=== PATIENT | female | born 1980 | race African-American/Black ===

== ENCOUNTER 2024-01-08 12:42 | Observation (INO) | payer SELFPAY ==
--- NOTE | ~2024-01-08 | MR_ITS ---
EXAMINATION: MR thoracic spine wo/w con DATE: 01/10/2024 11:48 INDICATION: Multiple sclerosis. Left-sided numbness. TECHNIQUE: Magnetic resonance imaging (MRI) of the thoracic spine was performed without and with 17 m L MultiHance intravenous contrast. COMPARISON: None FINDINGS: There is 7 degrees levocurvature of thoracic spine. There is mild chronic height loss at T3 , T4, and T5 vertebral bodies. Intervertebral disc heights are normal. The discs do not extend beyond the endplate margins. There is multilevel mild facet joint osteoarthritis. No neural foraminal steno sis or central canal stenosis. The spinal cord signal intensity is normal. IMPRESSION: 1. Normal thoracic spinal cord. Reviewed, dictated and finalized at location E.
--- NOTE | ~2024-01-08 | CT_ITS ---
EXAMINATION: CTA brain carotid DATE: 01/08/2024 16:16 INDICATION: Numbness on the left side of face, arms and legs. Lightheadedness. TECHNIQUE: Computed tomographic angiography (CTA) of the head was performed without and with 100 mL O mnipaque-350 intravenous contrast. CTA of the neck was performed with intravenous contrast. Automated exposure control and iterative reconstruction technique were employed. The dose-length product was 1 834.18 mGy-cm. Maximum intensity projection and volume rendered 3D-reconstructions were created by becky fowler technologist on a separate workstation. COMPARISON: None. FINDINGS: HEAD CTA: There is no intracranial hemorrhage, acute infarction, or abnormal intracranial mass lesion . The ventricles are normal in size. The orbits are normal. The paranasal sinuses are clear. The mast oid air cells are normal. The vertebral arteries are codominant. There is no significant stenosis of basilar artery or the posterior cerebral arteries. There is no significant stenosis of the intracrani al internal carotid arteries or anterior or middle cerebral arteries. Anterior communicating artery i s normal. The posterior communicating arteries are normal. There is no aneurysm. NECK CTA: There are nodules in the thyroid measuring up to 9 mm, likely not clinically significant. T here is no cervical lymphadenopathy. There is no significant stenosis of the vertebral arteries. Ther e is mild plaque in the proximal internal carotid arteries. There is 0% stenosis of the proximal righ t internal carotid artery relative to normal distal artery lumen diameter (NASCET criteria). There is 0% stenosis of the proximal left internal carotid artery relative to normal distal artery lumen diam eter. There is mild cervical spondylosis. IMPRESSION: 1. Normal brain. No aneurysm or significant intracranial arterial stenosis 2. 0% stenosis of the proximal internal carotid arteries relative to normal distal artery lumen diame ters (NASCET criteria). Reviewed, dictated and finalized at location A. IMPRESSION: 1. Normal brain. No aneurysm or significant intracranial arterial stenosis 2. 0% stenosis of the proximal internal carotid arteries relative to normal dis romero artery lumen diameters (NASCET criteria).
--- NOTE | ~2024-01-08 | XR_ITS ---
EXAMINATION: XR lumbar puncture diagnostic DATE: 01/09/2024 15:15 INDICATION: Multiple sclerosis. TECHNIQUE: The procedure including the risks, benefits, and alternatives was discussed with the patie nt. Risks discussed included spinal headache, cerebrospinal fluid leak, bleeding, and infection. The patient understood the risks and agreed to proceed. A timeout was performed to verify the patient' s name, date of , and procedure to be performed. The skin overlying the L3-L4 level was prepped and draped in usual sterile fashion. Subcutaneous 1% lidocaine was used for local anesthesia. A 20 gauge spinal needle was advanced under fluoroscopic guidance. The needle was removed and the entry s ite was cleaned and dressed. There were no immediate complications. Fluoroscopy exposure time was 0. 1 minutes. The total number of images was 1. FINDINGS: Real-time fluoroscopy demonstrates the needle at the L3-L4 level. The opening pressure was 17 cm water (Normal range is variably defined as 6-20 cm water and up to 25 cm water in obese patient s. Pressure >25 cm water is one of the modified Dandy criteria for idiopathic intracranial hypertensi on). 14 mL of clear, colorless fluid was collected in 4 tubes. IMPRESSION: 1. Successful fluoro-guided lumbar puncture. Reviewed, dictated and finalized at location A.
--- NOTE | ~2024-01-08 | MR_ITS ---
EXAMINATION: MR cervical spine wo/w con DATE: 01/10/2024 11:48 INDICATION: Multiple sclerosis. Left-sided numbness. TECHNIQUE: Magnetic resonance imaging (MRI) of the cervical spine was performed without and with 17 m L MultiHance intravenous contrast. COMPARISON: None FINDINGS: There is mild cervical kyphosis. Vertebral body heights are normal. There is mildly decreas ed disc height at C4-C5, C5-C6, and C6-C7. The spinal cord signal intensity is normal. The following disc levels are specifically discussed: C2-C3: The disc does not extend beyond the endplate margin. There is mild left uncovertebral joint os teoarthritis. There is mild bilateral facet joint osteoarthritis. There is no neural foraminal stenos is. There is no central canal stenosis. C3-C4: There is a central extrusion. There is mild bilateral uncovertebral joint osteoarthritis. Ther e is mild bilateral facet joint osteoarthritis. There is mild right neural foraminal stenosis. There is mild central canal stenosis with ventral indentation of the spinal cord. C4-C5: The disc is bulging. There is severe bilateral uncovertebral joint osteoarthritis. There is no facet joint osteoarthritis. There is mild bilateral neural foraminal stenosis. There is mild central canal stenosis. C5-C6: The disc is bulging. There is severe bilateral uncovertebral joint osteoarthritis. There is no facet joint osteoarthritis. There is mild bilateral neural foraminal stenosis. There is mild central canal stenosis with ventral indentation of the spinal cord. C6-C7: The disc is bulging. There is severe bilateral uncovertebral joint osteoarthritis. There is no facet joint osteoarthritis. There is mild bilateral neural foraminal stenosis. There is mild central canal stenosis with ventral indentation of the spinal cord. C7-T1: The disc does not extend beyond the endplate margin. There is no uncovertebral joint osteoarth ritis. There is no facet joint osteoarthritis. There is no neural foraminal stenosis. There is no genesis tral canal stenosis. IMPRESSION: 1. Mild cervical spondylosis. Reviewed, dictated and finalized at location E.
--- NOTE | ~2024-01-08 | MR_ITS ---
EXAMINATION: MR brain/brain stem wo/w con DATE: 01/09/2024 09:58 INDICATION: Left hemiparesis. TECHNIQUE: Magnetic resonance imaging (MRI) of the brain and brainstem was performed without and with 18 mL MultiHance intravenous contrast. COMPARISON: Head CT 01/08/2024 FINDINGS: There are approximately 6 scattered foci of increased T2-weighted signal intensity in the c erebral white matter. There is increased T2-weighted signal intensity in the akssandra on the right. None of these areas enhance. There is no acute ischemic infarct or intracranial hemorrhage. The ventricles are normal in size. There is mild mucosal thickening in the ethmoid sinuses. The orbits are normal. There is a trace left mastoid effusion. IMPRESSION: 1. 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 The differential diagnosis inc ludes premature chronic small vessel ischemic disease (especially if the patient has cardiovascular r isk factors), demyelinating disease such as multiple sclerosis, drug abuse, vasculitis, or reactive a strocytosis (gliosis) secondary to nonspecific etiology. Reviewed, dictated and finalized at location A. IMPRESSION: 1. 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 The diff erential diagnosis includes premature chronic small vessel ischemic disease (es pecially if the patient has cardiovascular risk factors), demyelinating disease such as multiple sclerosis, drug abuse, vasculitis, or reactive astrocytosis ( gliosis) secondary to nonspecific etiology.
[2024-01-08 13:12] VITALS: BP 115/71; PULSE 60; RESP 17; TEMP 36.4; O2SAT 100
--- NOTE | 2024-01-08 14:47 | ED.GENADULT ---
HPI - General Adult General Chief complaint: Neuro Symptoms/Deficit <Marianne Crowe, REAL ESTATE INVESTMENT ANALYST - Last Filed: 01/08/24 14:49> Stated complaint: numbness on L side x few days <Marianne Tobin December, REAL ESTATE INVESTMENT ANALYST - Last Filed: 01/08/24 14:49> Time Seen by Provider: 01/08/24 14:47 <Marianne Tobin December, REAL ESTATE INVESTMENT ANALYST - Last Filed: 01/08/24 14:49> Focused HPI: Conor Sidhu is a 43 y/o female who presents with reports of having numbness to her left leg/ left arm and left side of her face that started about 3 days ago and feels that symptoms are getting worse. She states that her taste is off as well. GENERAL: Well-appearing, well-nourished, and in no acute distress. HEAD: Normocephalic, atraumatic. CHEST: Clear to auscultation. ?No respiratory distress. HEART: Regular rate and rhythm.? NEURO: ?Alert and oriented x3. Patient screened in triage and initial orders placed.? ?Additional care and disposition to be based upon?diagnostic testing and treatment. <Marianne Tobin December, REAL ESTATE INVESTMENT ANALYST - Last Filed: 01/08/24 14:49> History of Present Illness HPI narrative: Agree with HPI. Patient also reports she had similar symptoms in the last year that lasted for 2 months. No history of CVA or MS. No alleviating factors. Patient also endorses that she has balance issues related to this. <Jose Maria Mott MD - Last Filed: 01/08/24 18:45> Review of Systems Review of Systems: All systems reviewed & are unremarkable except as noted in HPI and below <Jose Maria Mott MD - Last Filed: 01/08/24 18:45> Constitutional: Constitutional: Reports no additional constitutional complaints <Jose Maria Mott MD - Last Filed: 01/08/24 18:45> Cardiovascular: Cardiovascular: Reports no additional cardiovascular complaints <Jose Maria Mott MD - Last Filed: 01/08/24 18:45> Respiratory: Respiratory: Reports no additional respiratory complaints <Jose Maria Mott MD - Last Filed: 01/08/24 18:45> Gastrointestinal: Gastrointestinal: Reports no additional gastrointestinal complaints <Jose Maria Mott MD - Last Filed: 01/08/24 18:45> Musculoskeletal: Musculoskeletal: Reports no additional musculoskeletal complaints <Jose Maria Mott MD - Last Filed: 01/08/24 18:45> Neurologic: Denies syncope, Denies headache(s), Reports focal weakness and Reports numbness <Jose Maria Mott MD - Last Filed: 01/08/24 18:45> PMFSH Past Medical History Medical History: Medical History (Updated 01/08/24 @ 18:44 by Jose Maria Mott MD) Healthy female adult <Marianne Crowe REAL ESTATE INVESTMENT ANALYST - Last Filed: 01/08/24 14:49> Surgical History Surgical History: Surgical History (Updated 01/08/24 @ 18:35 by Jose Maria Mott MD) No history of previous surgery <Marianne Crowe REAL ESTATE INVESTMENT ANALYST - Last Filed: 01/08/24 14:49> Family History Family History: Family History (Updated 01/08/24 @ 18:35 by Jose Maria Mott MD) Other Lupus <Marianne Crowe REAL ESTATE INVESTMENT ANALYST - Last Filed: 01/08/24 14:49> Exam Narrative: GENERAL: Well-appearing, well-nourished, and in no acute distress. HEAD: Normocephalic, atraumatic. EYES: PERRL, EOMI ENT: Mucous membranes moist. CHEST: Clear to auscultation. No respiratory distress. HEART: Regular rate and rhythm. Normal peripheral pulses. ABDOMEN: Soft, nontender, nondistended. EXTREMITIES: Normal range of motion. No edema. SKIN: Warm, dry, no rash. NEURO: Alert and oriented x3. Left upper and left lower extremity drift. Normal kaav-zr-tewu testing and [id number] testing. No facial droop. Sharp touch sensation intact in all extremities. NIH stroke scale 2. PSYCH: Normal mood and affect. <Jose Maria Mott MD - Last Filed: 01/08/24 18:45> Course Course Emergency Course: patient resting comfortably. Discussed case with Dr. Hoffman with neurology. Recommends admission for observation MRI to further evaluate. patient accepted by hospitalist service. <Jose Maria Mott MD - Last Filed: 01/08/24 18:45> Vital Signs Vital signs: Vital Si
--- NOTE | 2024-01-08 14:50 | ECG_ITS ---
SEE SCANNED COPY FOR CONFIRMED REPORT MTDD
[2024-01-08 15:25] VITALS: BP 124/80; PULSE 51; RESP 14; O2SAT 100
[2024-01-08 15:31] LABS: Appearance Urine Clear (Clear); Bilirubin Urine Negative (Negative); Blood Urine Negative (Negative); Color Urine Yellow (Yellow); Glucose Urine UA Negative (Negative); Ketones Urine Negative (Negative); Leukocyte Esterase Ur Negative LEU/UL (Negative); Nitrate Urine Negative (Negative); Protein Urine Negative (Negative); Specific Grav Ur 1.013 (1.001-1.035)
[2024-01-08 15:32] VITALS: BP 109/62; PULSE 52; RESP 22; O2SAT 100
[2024-01-08 15:32] LABS: Basophils Percent Auto 0.3 % (0.2-1.2); Eosinophils Absolute Auto 0.2 K/mm3 (0-0.3); Eosinophils Percent Auto 3.4 % (0-4.4); Hematocrit 36.3 % (37.0-47.0); Hemoglobin 11.8 g/dL (12.0-15.0); Immature Granulocyte Absolute 0.01 K/mm3 (0.00-0.031); Immature Granulocyte Percent A 0.2 % (0-0.5); Lymphocytes Absolute Auto 1.52 K/mm3 (0.9-3.2); Lymphocytes Percent Auto 24.6 % (18.3-44.2); Mean Corpuscular HGB Conc 32.5 g/dl (32-36); Mean Corpuscular Hemoglobin 23.5 pg (26-34); Mean Corpuscular Volume 72.2 fl (80-100); Mean Platelet Volume 12.8 fl (7.4-10.4); Monocytes Absolute Auto 0.5 K/mm3 (0.1-0.6); Monocytes Percent Auto 8.4 % (2.6-8.5); Neutrophils Absolute Auto 3.9 K/mm3 (1.3-6.7); Neutrophils Percent Auto 63.1 % (45.5-73.1); Platelet Count Result 238 k/mm3 (150-375); Red Blood Count 5.03 M/mm3 (4.2-5.4); Red Cell Distribution Width 16.4 % (11.5-14.5); White Blood Count 6.2 K/mm3 (4.5-10.0)
[2024-01-08 15:35] LABS: Ethanol < 10 mg/dL (<10)
[2024-01-08 15:47] LABS: Prothrombin Time 13.5 Seconds (11.1-14.7)
[2024-01-08 15:47] LABS: Add Urine Microscopic? NO
[2024-01-08 15:49] LABS: Partial Thromboplastin Time 26.3 Seconds (22.3-36.8)
[2024-01-08 15:54] LABS: Alanine Aminotransferase 23 U/L (6-35); Albumin Level 4.5 g/dL (3.5-5.1); Alkaline Phosphatase 75 U/L (38-126); Anion Gap 5 mmol/L (4-12); Aspartate Amino Transferase 29 U/L (14-36); Bilirubin,Total 0.4 mg/dL (0.2-1.3); Blood Urea Nitrogen 9 mg/dL (7-17); Calcium 9.5 mg/dL (8.4-10.2); Carbon Dioxide 26 mmol/L (22-30); Chloride 107 mmol/L (98-107); Estimated CRCL calculation 82 ml/min; Estimated Glomerular Filt Rate > 60; Glucose 94 mg/dL (65-110); Microcytosis 1+ (NORMAL); Platelet Estimate Adequate (Adequate); Potassium 3.9 mmol/L (3.4-5.0); Sodium 138 mmol/L (137-145)
[2024-01-08 15:55] LABS: Schistocytes None Seen; Stomatocytes 1+
[2024-01-08 16:06] LABS: Troponin I < 0.012 ng/mL (0.000-0.034)
[2024-01-08 16:44] VITALS: O2SAT 100
[2024-01-08 19:45] VITALS: BP 124/60; PULSE 90; RESP 18; TEMP 36.6; O2SAT 100
[2024-01-08 20:00] VITALS: BMI 28.9
--- NOTE | 2024-01-08 20:45 | PM.IMHP ---
H&P: HPI History of Present Illness Date/Time: 01/08/24 20:45 Chief Complaint: left-sided tingling Narrative: This is a 43-year-old female with past medical history significant for tobacco dependence, COPD/emphysema, chronic back pain. patient presents to the emergency room with 3 days of left-sided numbing tingling localized to the face and left-sided headache. patient denies any focal weakness, no fevers no rigors no chills, no vision changes, has been her usual state of health up until this point. Preliminary workup has been essentially nonrevealing. Patient has been placed in observation for further evaluation management and treatment. EXAMINATION: CTA brain carotid DATE: 01/08/2024 16:16 INDICATION: Numbness on the left side of face, arms and legs. Lightheadedness. TECHNIQUE: Computed tomographic angiography (CTA) of the head was performed without and with 100 mL Omnipaque-350 intravenous contrast. CTA of the neck was performed with intravenous contrast. Automated exposure control and iterative reconstruction technique were employed. The dose-length product was 1834.18 mGy-cm. Maximum intensity projection and volume rendered 3D-reconstructions were created by the technologist on a separate workstation. COMPARISON: None. FINDINGS: HEAD CTA: There is no intracranial hemorrhage, acute infarction, or abnormal intracranial mass lesion. The ventricles are normal in size. The orbits are normal. The paranasal sinuses are clear. The mastoid air cells are normal. The vertebral arteries are codominant. There is no significant stenosis of basilar artery or the posterior cerebral arteries. There is no significant stenosis of the intracranial internal carotid arteries or anterior or middle cerebral arteries. Anterior communicating artery is normal. The posterior communicating arteries are normal. There is no aneurysm. NECK CTA: There are nodules in the thyroid measuring up to 9 mm, likely not clinically significant. There is no cervical lymphadenopathy. There is no significant stenosis of the vertebral arteries. There is mild plaque in the proximal internal carotid arteries. There is 0% stenosis of the proximal right internal carotid artery relative to normal distal artery lumen diameter (NASCET criteria). There is 0% stenosis of the proximal left internal carotid artery relative to normal distal artery lumen diameter. There is mild cervical spondylosis. IMPRESSION: 1. Normal brain. No aneurysm or significant intracranial arterial stenosis 2. 0% stenosis of the proximal internal carotid arteries relative to normal distal artery lumen diameters (NASCET criteria). Review of Systems Review of Systems: Left-sided of the phase no new and tingling left supraorbital headache Constitutional: Constitutional: Denies chills, Denies fever(s), Denies malaise and Denies weakness Eyes: Eyes: Denies change in vision ENT: Denies dysphagia, Denies vertigo, Denies dizziness, Reports headache(s) and Denies odynophagia Cardiovascular: Cardiovascular: Denies chest pain, Denies radiating jaw, neck or arm pain and Denies palpitations Respiratory: Respiratory: Denies chest congestion and Denies cough Gastrointestinal: Gastrointestinal: Denies abdominal pain, Denies nausea and Denies vomiting Genitourinary: Genitourinary: Denies dysuria Musculoskeletal: Musculoskeletal: Denies myalgias Integumentary/Breasts: Skin/Breast: Denies rash Neurologic: Denies focal weakness, Denies Sensory deficit (Neuro) and Reports tingling ( left side of the face) Psychiatric: Psychiatric: Reports no additional psychiatric complaints and Reports as per HPI Endocrine: Endocrine: Denies cold intolerance, Denies heat intolerance, Denies polyphagia, Denies polydipsia, Denies polyuria and Denies palpitations Hematologic/Lymphatic: Hematologic/Lymphatic: Reports no additional hematologic/lymphatic complaints and Reports as per HPI Allergic/Immunologic: Allergic/Immunologi
--- NOTE | 2024-01-09 | ECHO_ITS ---
Patient Info Name: Conor Sidhu Age: 43 years : 1980 Gender: Female Ht: 68 in Wt: 190 lbs BSA: 2.05 m2 HR: 60 bpm BP: 126 / 61 mmHg Heart Rhythm: Sinus Rhythm Technical Quality: Good Exam Date: 01/09/2024 2:01 PM Exam Location: Echo Lab Patient Status: Inpatient Admit Date: 01/08/2024 Staff Ordering Physician: Jenny Ram MD [employer] Eggs: Kymberly Peña RDCS Attending Provider: Alberto Lainez MD Exam Type: CA echo doppler w bubble study Study Info Indications - Concern for possible TIA (LEFT SIDED NUMBNESS) Complete two-dimensional, color flow and Doppler transthoracic echocardiogram is performed with agitated saline. Contrast/Agitated Saline Contrast/Ag. Saline: Agitated Saline Amount: 14.00 ml Existing IV Access: Yes IV Access Condition: patent with no signs of infiltration Summary 1. Left ventricular chamber dimension is normal. 2. Left ventricular systolic function is normal, estimated at 60-65%. 3. The left ventricular diastolic function is normal. 4. E/e' 8 is minimally elevated. 5. There is trace tricuspid valve regurgitation. 6. No pulmonary hypertension, estimated pulmonary arterial systolic pressure is 26 mmHg. 7. There is trace pulmonic regurgitation. Left Ventricle E/e' 8 is minimally elevated. Left ventricular chamber dimension is normal. Left ventricular systolic function is normal, estimated at 60-65%. The left ventricular diastolic function is normal. Right Ventricle Right ventricular systolic function is normal and with normal TAPSE 2.7 cm. Right ventricular chamber dimension is normal. Left Atria Left atrial chamber dimension is normal. Right Atria Right atrial chamber dimension is normal. Atrial Septum Agitated saline injection with and without valsalva maneuver opacified right side cardiac chambers without shunt to left side cardiac chambers. Intact interatrial septum visualized by 2D and agitated saline imaging. Aortic Valve The aortic valve is trileaflet. There is no aortic valve stenosis. There is no aortic valve regurgitation. Pulmonic Valve There is trace pulmonic regurgitation. Mitral Valve There is no mitral valve stenosis. There is no mitral valve regurgitation. Tricuspid Valve There is trace tricuspid valve regurgitation. No pulmonary hypertension, estimated pulmonary arterial systolic pressure is 26 mmHg. Pericardium/Pleural There is no pericardial effusion. Inferior Vena Cava Normal inferior vena cava with >50% collapse upon inspiration consistent with normal right atrial pressure, 5 mmHg. Aorta The aortic root size at the sinus of Valsalva is normal. Left Ventricular Outflow Tract Name Value Normal LVOT 2D LVOT Diameter 2.0 cm LVOT Doppler LVOT Peak Gradient 4 mmHg LVOT Mean Gradient 2 mmHg LVOT VTI 18 cm LVOT VTI/AV VTI Ratio 0.6 LVOT Stroke Volume 55 ml LVOT CO 2.4 l/min LVOT CI 1.2 l/min/m2 Pulmonic Valve
[2024-01-09 06:00] VITALS: BP 126/61; PULSE 60; RESP 16; TEMP 36.2; O2SAT 100
--- NOTE | 2024-01-09 09:10 | PM.IMPN ---
Progress Note: A&P Assessment and Plan (1) Left-sided weakness: Code(s): R53.1 - Weakness Status: Acute Assessment and Plan: placed in observation CTA- WNL MRI of the brain in the morning 01/09/24 continue to monitor neuro checks q 4 neurology consult today (2) Tobacco dependence: Code(s): F17.200 - Nicotine dependence, unspecified, uncomplicated Status: Acute Assessment and Plan: nicotine patches Time Spent With Patient Time with patient: 15 - 25 minutes Subjective Date/time seen: 01/09/24 09:10 Interval history: This is a 43-year-old female with past medical history significant for tobacco dependence, COPD/emphysema, chronic back pain. patient presents to the emergency room with 3 days of left-sided numbing tingling localized to the face and? left-sided headache. patient denies any focal weakness, no fevers no rigors no chills, no vision changes, has been her usual state of health up until this point.? Preliminary workup has been essentially nonrevealing.? Patient has been placed in observation for further evaluation management and treatment. 01/08- awaiting neurology assessment and recommendations Review of Systems Review of Systems: Left-sided of the phase no new and tingling left supraorbital headache Constitutional: Constitutional: Denies chills, Denies fever(s), Reports headache(s), Denies malaise and Denies weakness Eyes: Eyes: Denies change in vision ENT: Denies dysphagia, Denies vertigo, Denies dizziness, Reports headache(s) and Denies odynophagia Cardiovascular: Cardiovascular: Denies chest pain, Denies radiating jaw, neck or arm pain and Denies palpitations Respiratory: Respiratory: Denies chest congestion and Denies cough Gastrointestinal: Gastrointestinal: Denies abdominal pain, Denies dysphagia, Denies nausea, Denies odynophagia and Denies vomiting Genitourinary: Genitourinary: Denies dysuria Musculoskeletal: Musculoskeletal: Denies myalgias and Reports tingling ( left side of the face) Integumentary/Breasts: Skin/Breast: Denies rash Neurologic: Denies vertigo, Denies dizziness, Reports headache(s), Denies focal weakness, Denies Sensory deficit (Neuro), Reports tingling ( left side of the face) and Denies weakness Psychiatric: Psychiatric: Reports no additional psychiatric complaints and Reports as per HPI Endocrine: Endocrine: Denies cold intolerance, Denies heat intolerance, Denies polyphagia, Denies polydipsia, Denies polyuria and Denies palpitations Hematologic/Lymphatic: Hematologic/Lymphatic: Reports no additional hematologic/lymphatic complaints and Reports as per HPI Allergic/Immunologic: Allergic/Immunologic: Reports no additional allergic/immunologic complaints and Reports as per HPI Exam Narrative: patient is laying in bed Const: General: comfortable, no acute distress, well developed, alert, awake and average body habitus Nutritional Appearance: average body habitus Orientation/consciousness: patient oriented x3 Other: well-appearing HENMT: Head: normal to inspection, normocephalic and atraumatic Ears: hearing grossly normal bilaterally Face/Nose/Sinus: normal facial exam Face and sinus: normal facial exam Eyes: General: appearance normal, both eyes and all related structures Pupils: Equal, round and reactive pupils present EOM: EOMs intact bilaterally Neck: Neck: full ROM, no lymphadenopathy and no JVD Thyroid: thyroid normal Lymphatic: no lymphadenopathy noted Resp: Effort & Inspection: normal respiratory effort and able to speak in complete sentences Auscultation: clear to auscultation bilaterally Cardio: Jugular venous distension: no JVD Rate: regular rate Rhythm: regular rhythm Heart sounds: S1 normal heart sound present and S2 normal heart sound present : General: Yes deferred Skin: Rashes: no rashes Wounds: no wounds Neuro: General: patient oriented x3 and CN's II-XI intact bilaterally Cranial n
--- NOTE | 2024-01-09 09:15 | WPDNEURCNPN ---
Assessment and Plan Assessment and plan (1) Left sided numbness: Code(s): R20.0 - Anesthesia of skin Status: Acute (2) Tobacco dependence: Code(s): F17.200 - Nicotine dependence, unspecified, uncomplicated Status: Acute Plan Lisa Sidhu is a 43 year old female with a history of chronic smoking and COPD presenting for evaluation of left hemisensory numbness/paraesthesias. MRI brain is negative for stroke. She still has some numbness in the L face and L foot. There are some white matter changes in the subcortical area and also in the kassandra, but no active areas of enhancement. Given age, will need to further evaluate for MS. She reports a prior episode of transient R hemisensory numbness about 18 years ago, which could have been an initial presenting symptoms. White matter changes could also be related to her chronic smoking. - Obtain cervical spine and thoracic spine MRI with and without contrast - Obtain LP with CSF studies to check for oligoclonal bands - Start aspirin 81mg daily (in case this is a vascular event). Check lipid panel and start statin if LDL is >80. Check surface echo with bubble study - Will need close follow-up in Neurology clinic Consult date: 01/09/24 Reason for consult: L sided numbness HPI: Conor Sidhu is a 43 year old female with a history of COPD, chronic smoking presenting for evaluation of L sided numbness/tingling. Symptoms started three days ago and have gotten progressively worse. She presented to the ER yesterday evening. BP was within normal range. EKG showed sinus bradycardia. CT head showed no acute findings and CTA brain/carotid was negative as well. She was admitted for further evaluation of symptoms. Patient reports that she still has some numbness on the left side, but it has somewhat improved. She reports that in 2005, she had a transient episode of R sided numbness that self-resolved on its own. She does not know what work-up she had at the time, but she said no one could figure out what happened. She reports her vision was a little blurry on the left side yesterday, but that has improved. She denies any double vision. She has some LLE weakness and also numbness that she reports is chronic and possibly related to spinal injections she had received for back pain. MRI brain showed 6 scattered T2 hyperintense lesions in the cerebral white matter, and also increased T2 hyperintensity in the R kassandra. There were no areas of enhancement. Review of Systems Review of Systems: All systems reviewed & are unremarkable except as noted in HPI and below PMFSH Past Medical History Medical History Healthy female adult Surgical History Surgical History No history of previous surgery Family History Family History Other Lupus Social History Social History Smoking packs per day: 0.5 Smoking cigarettes per day: 10.0 Years smoked: 2 Smoking pack-years: 1.00 Smoking status: Current every day smoker Tobacco type: cigarettes Additional smoking assessment comments: patient under stress, alot of loss in her family recently Alcohol intake: current Drinks per week: 3 Substance use: current Substance use type: marijuana Do You Feel Safe in your Home?: Yes Lack of Transportation: No Lack of Food: Never True Current Housing: I Have Housing Concerned About Future Housing: No Difficulty Paying Gas/Electric Bills: No Difficulty Paying for Meds: No Currently Unemployed: No Education: High School Diploma/GED Difficulty w/ Childcare or Family Care: No Spiritual care concerns: No Meds Home Medications and Allergies Home Medications Medication Instructions Recorded Confirmed Type albuterol sulfate 2.5 mg inhalation QID PRN
[2024-01-09 14:00] VITALS: BP 101/54; PULSE 77; RESP 14; TEMP 36.8; O2SAT 100
[2024-01-09 14:23] LABS: LDL Cholesterol Direct 114 mg/dL
[2024-01-09 15:01] VITALS: BP 113/62; PULSE 46; RESP 12; O2SAT 99
[2024-01-09 15:08] VITALS: BP 115/73; PULSE 44; RESP 12; O2SAT 100
[2024-01-09] MEDS: ASPIRIN 81 MG CHEWABLE TABLET PO (15:28)
[2024-01-09 15:30] LABS: Glucose CSF 54 mg/dL (40-70); Total Protein CSF 77 mg/dL (12-60)
[2024-01-09 15:53] LABS: Appearance CSF Clear (Clear); CSF source CSF; Color CSF Colorless (Colorless); Red Blood Cell CSF 0 (0-2)
[2024-01-09 16:10] LABS: Lymphocytes CSF 88 % (40-80); Monocytes CSF 12 % (15-45)
[2024-01-09 16:15] LABS: Nucleated Cell CSF 23 /uL (0-5)
--- NOTE | 2024-01-09 19:10 | PC.NURSE ---
On 01/09/24, the EPILEPSY PHYSICIAN,Peggy Maurice, provided care and completed [employer] documentation on this patient. I have reviewed the EPILEPSY PHYSICIAN's documentation and agree with the findings.
[2024-01-09 20:00] VITALS: RESP 12
[2024-01-09 21:01] VITALS: BP 146/73; PULSE 61; RESP 12; TEMP 36.6; O2SAT 100
[2024-01-10 05:18] VITALS: BP 105/56; PULSE 76; RESP 12; TEMP 36.8; O2SAT 100
[2024-01-10 06:52] LABS: Cholesterol 204 mg/dL (0-200); HDL Direct 53 mg/dL; Triglycerides 116 mg/dL (<150)
[2024-01-10 07:03] LABS: LDL Cholesterol Direct 122 mg/dL
[2024-01-10] MEDS: ASPIRIN 81 MG CHEWABLE TABLET PO (08:39)
[2024-01-10 08:40] VITALS: O2SAT 100
--- NOTE | 2024-01-10 09:30 | PM.IMPN ---
Progress Note: A&P Assessment and Plan (1) Left-sided weakness: Code(s): R53.1 - Weakness Status: Acute Assessment and Plan: placed in observation CTA- WNL MRI brain showed 6 scattered T2 hyperintense lesions in the cerebral white matter, and also increased T2 hyperintensity in the R kassandra. There were no areas of enhancement. continue to monitor neuro checks q 4 neurology consult today: Obtain cervical spine and thoracic spine MRI with and without contrast - Obtain LP with CSF studies to check for oligoclonal bands - Start aspirin 81mg daily (in case this is a vascular event). Check lipid panel and start statin if LDL is >80. Check surface echo with bubble study - Will need close follow-up in Neurology clinic - on asa, LDL 122- will add statin (2) Tobacco dependence: Code(s): F17.200 - Nicotine dependence, unspecified, uncomplicated Status: Acute Assessment and Plan: nicotine patches - discussed smoking cessation Time Spent With Patient Time with patient: 15 - 25 minutes Subjective Date/time seen: 01/10/24 09:30 Interval history: This is a 43-year-old female with past medical history significant for tobacco dependence, COPD/emphysema, chronic back pain. patient presents to the emergency room with 3 days of left-sided numbing tingling localized to the face and? left-sided headache. patient denies any focal weakness, no fevers no rigors no chills, no vision changes, has been her usual state of health up until this point.? Preliminary workup has been essentially nonrevealing.? Patient has been placed in observation for further evaluation management and treatment. 01/08- neurology saw her-MRI done-MRI brain showed 6 scattered T2 hyperintense lesions in the cerebral white matter, and also increased T2 hyperintensity in the R kassandra. There were no areas of enhancement. 01/09- she is examined today- alert, oriented, family at the bedside. voices no complains Review of Systems Review of Systems: Left-sided of the phase no new and tingling left supraorbital headache Constitutional: Constitutional: Denies chills, Denies fever(s), Reports headache(s), Denies malaise and Denies weakness Eyes: Eyes: Denies change in vision ENT: Denies dysphagia, Denies vertigo, Denies dizziness, Reports headache(s) and Denies odynophagia Cardiovascular: Cardiovascular: Denies chest pain, Denies radiating jaw, neck or arm pain and Denies palpitations Respiratory: Respiratory: Denies chest congestion and Denies cough Gastrointestinal: Gastrointestinal: Denies abdominal pain, Denies dysphagia, Denies nausea, Denies odynophagia and Denies vomiting Genitourinary: Genitourinary: Denies dysuria Musculoskeletal: Musculoskeletal: Denies myalgias and Reports tingling ( left side of the face) Integumentary/Breasts: Skin/Breast: Denies rash Neurologic: Denies vertigo, Denies dizziness, Reports headache(s), Denies focal weakness, Denies Sensory deficit (Neuro), Reports tingling ( left side of the face) and Denies weakness Psychiatric: Psychiatric: Reports no additional psychiatric complaints and Reports as per HPI Endocrine: Endocrine: Denies cold intolerance, Denies heat intolerance, Denies polyphagia, Denies polydipsia, Denies polyuria and Denies palpitations Hematologic/Lymphatic: Hematologic/Lymphatic: Reports no additional hematologic/lymphatic complaints and Reports as per HPI Allergic/Immunologic: Allergic/Immunologic: Reports no additional allergic/immunologic complaints and Reports as per HPI Exam Narrative: patient is laying in bed Const: General: comfortable, no acute distress, well developed, alert, awake and average body habitus Nutritional Appearance: average body habitus Orientation/consciousness: patient oriented x3 Other: well-appearing HENMT: Head: normal to inspection, normocephalic and atraumatic Ears: hearing grossly normal bilaterally Face/Nose/Sinus: normal facial exam
[2024-01-10] MEDS: ATORVASTATIN 20 MG TABLET PO (10:14)
[2024-01-10 13:49] VITALS: BP 114/63; PULSE 71; RESP 18; TEMP 36.8; O2SAT 100
[2024-01-10 20:25] VITALS: BP 122/78; PULSE 50; RESP 14; TEMP 36.8; O2SAT 100
--- NOTE | 2024-01-10 22:09 | PC.NURSE ---
Patient requested to leave AMA this evening. patient states I am sitting in bed, just waiting, Im not getting any medications or results I explained that the results could be ready friday or friday and we would be able to give her more information by then.But the patient insisted on going home and following up on friday. I alerted MD Brooke Zuniga of the patients request and she stated to make sure the patient understood the risks of going home and not staying and being monitored. I explained to the patient that since we are still running tests and waiting for results it would be safer for you to stay until friday and find out what is truly wrong. I explained if she starts having any symptoms to go to the emergency room and seek medical care immediately. Patient states she understands and is going to stay with her daugther and come back in if anything happens.
--- NOTE | 2024-01-14 14:34 | PM.EVENT ---
Event Note Event Note Event Note: Patient requested to leave AMA on 01/09 around 22:00. Patient cited that she was just awaiting results and not receiving treatment to RN. Patient would like to go home and await results there. Discussed risks and benefits with RN, Donny, who conveyed these to the patient. She verbalized understanding of risks of leaving without results and potential treatment. Discussed red flag symptoms and symptoms that indicate prompt return to the ED. See nursing note. Final diagnosis at d/c: R53.1 - Weakness. Following LP results, patient will need to follow up with neurology.
[2024-01-19 11:15] LABS: Albumin, CSF 25.1
[2024-01-19 11:16] LABS: IgG Index, CSF 3.23; IgG, CSF 24.6
[2024-01-19 11:17] LABS: Immunoglobulin G, Serum 1230
--- NOTE | 2024-01-21 09:59 | PC.NURSE ---
Called and spoke with patient regarding follow up with Neurology. States she has an appt on 01/28.
[2024-01-23 08:19] LABS: Myelin Basic Protein, CSF <2.0 mcg/L (< OR = 4.0); Oligoclonal Bands (IgG), CSF PRESENT (ABSENT)
--- NOTE | 2024-02-16 11:40 | PC.NURSE ---
Pt called with questions regarding diagnoses. Pt advised to call Neurologist office to discuss next appointment to be scheduled as well as Neurology questions. Pt voiced understanding.
== END 2024-01-10 21:00 ==
LOC: ANHED 18:44 → ANH3MEDSUR 18:57
PROVIDERS: Nurse Practitioner; Nurse Practitioner Family; Student in an Organized Health Care Education/Training Program; Admitting Provider Hospitalist; Emergency Provider Emergency Medicine; PCP Internal Medicine; Visit Provider Hospitalist
DX: R53.1 Weakness (principal); R20.0 Anesthesia of skin; J44.9 Chronic obstructive pulmonary disease, unspecified; J43.9 Emphysema, unspecified; F17.210 Nicotine dependence, cigarettes, uncomplicated; Z79.51 Long term (current) use of inhaled steroids
CPT/HCPCS: 36415; 62328; 70496; 70498; 70553; 72156; 72157; 80053; 80061; 80307; 81003; 81025; 82040; 82042; 82784; 82945; 83721; 83873; 83916; 84157; 84484; 85025; 85055; 85610; 85730; 86850; 86900; 86901; 87070; 87205; 89051; 93005; 93306; 96375; 99285; A9270; A9577; G0378; Q9967